=== PATIENT | male | born 1970 | race Hispanic/Latino ===

== ENCOUNTER 2021-11-02 14:54 | Emergency (ER) | payer MEDICAID ==
[~2021-11-02] VITALS: Ht 190.5 cm; Wt 92.5 kg
[2021-11-02 14:56] VITALS: BP 117/63
[2021-11-02] MEDS ORDERED: KETOROLAC 60 MG VIAL (30MG/ML) IM STA (15:36)
[2021-11-02] MEDS ORDERED: NAPR375T6 PO (17:10)
== END 2021-11-02 17:27 | disposition home or self-care (01) ==
LOC: EDH 14:54
DX: M54.40 Lumbago with sciatica, unspecified side (principal); E11.9 Type 2 diabetes mellitus without complications
CPT/HCPCS: 99284; 73552; 72100; 96372; J1885